=== PATIENT | female | born 1960 | race African-American/Black ===

== ENCOUNTER 2018-02-17 12:54 | Emergency (ER) | payer OTHER ==
[~2018-02-17] VITALS: Ht 162.6 cm; Wt 86.2 kg
[2018-02-17 13:28] VITALS: Ht 162.6 cm; Wt 86.2 kg
[2018-02-17 15:12] VITALS: BP 147/83
== END 2018-02-17 15:13 | disposition home or self-care (01) ==
LOC: ED 12:54
DX: S96.912A Strain of unspecified muscle and tendon at ankle and foot level, left foot, initial encounter (principal); I10 Essential (primary) hypertension; K21.9 Gastro-esophageal reflux disease without esophagitis; Z88.8 Allergy status to other drugs, medicaments and biological substances; X50.1XXA Overexertion from prolonged static or awkward postures, initial encounter; Y93.89 Activity, other specified; Y92.89 Other specified places as the place of occurrence of the external cause; Y99.8 Other external cause status
CPT/HCPCS: Q0092